=== PATIENT | female | born 1935 | race Caucasian/White ===

== ENCOUNTER → 2016-09-19 | Outpatient (CLI) | payer BC, OTHER ==
[2016-09-19 17:18] LABS: BASO % 0.4 %; BASO ABS # 0.04 K/uL (0-0.2); COMPLETE YES; EOS % 3.5 %; HEMATOCRIT 40.2 % (37-47); IG% 0.2 %; LYMPH % 16.5 %; LYMPH ABS # 1.59 K/uL (1.2-3.4); MEAN CELL VOLUME 81.2 fL (80-100); MEAN CORPUSCULAR HEMOGLOBIN 26.3 pg (25-34); MEAN CORPUSCULAR HGB CONC 32.3 g/dl (32-36); MEAN PLATELET VOLUME 9.5 fL (7.4-10.4); NEUT % 71.4 %; PLATELET COUNT 448 K/uL (130-400); RED BLOOD COUNT 4.95 M/uL (4.2-5.4); WHITE BLOOD COUNT 9.63 K/uL (4.8-10.8)
[2016-09-19 19:40] LABS: ALT/SGPT 13 U/L (12-78); BLOOD UREA NITROGEN 5 mg/dl (7-18); BUN/CREATININE RATIO 7.6 (10-20); CALCIUM 9.7 mg/dl (8.5-10.1); CARBON DIOXIDE 27 mmol/L (21-32); CHLORIDE 100 mmol/L (98-107); CREATININE 0.67 mg/dl (0.60-1.20); GLUCOSE 105 mg/dl (70-99); POTASSIUM 4.2 mmol/L (3.5-5.1); SODIUM 136 mmol/L (136-145)
[2016-09-19 19:49] LABS: ALB/GLOB RATIO 0.9 (0.9-2); ALKALINE PHOSPHATASE 111 U/L (45-117); AST/SGOT 16 U/L (15-37); PREALBUMIN 21.2 mg/dl (20-40); THYROID STIMULATING HORMONE 0.709 uIu/ml (0.300-4.500)
== END | disposition home or self-care (01) ==
LOC: C.LABPVFM 12:05
PROVIDERS: ATTEND Nurse Practitioner Family
DX: R63.4 Abnormal weight loss (principal); R82.90 Unspecified abnormal findings in urine

== ENCOUNTER 2019-03-18 10:30 | Inpatient (IN) ==
--- OUTSIDE RECORDS SUMMARY | 2019-03-18 10:33 | External Medical Summary | Continuity of Care Document ---
:1935 Author Name Candace Fields, Provider Address Unavailable Unavailable , Care Team Providers Name Role Phone Unavailable Unavailable Unavailable Paddy Delgadillo Unavailable [email or web address] PADDY SINGH Unavailable Unavailable Unavailable Unavailable Unavailable Problems Seasonal asthma (493.90) (J45.998) Failure to thrive Unintended weight loss (783.21) (R63.4) Hypertension (401.9) (I10) Abnormal EKG (794.31) (R94.31) Urinary symptom or sign (788.99) (R39.9) Tachycardia (785.0) (R00.0) Abnormal urinalysis (791.9) (R82.90) Hypercholesterolemia (272.0) (E78.00) Thrombocytosis (238.71) (D47.3) Heart murmur (785.2) (R01.1) Allergies and Adverse Reactions Shellfish (Allergy) Medications Nitrofurantoin Macrocrystal 100 MG Oral Capsule; TAKE 1 CAPSULE EVERY 12 HOURS DAILY. DAMEON Singh Start: 19-Sep-2016 Quantity: 14 Refills: 0 Ventolin HFA 108 (90 Base) MCG/ACT Inhal ation Aerosol Solution; INHALE 2 PUFFS EVERY 4 TO 6 HOURS NEEDED. DAMEON Singh Start: 26-Sep-2016 Quantity: 1 Refills: 0 Procedures History of Cath Placement Of Stent 2 Sta tus: Completed History of Total Abdominal Hysterectomy Status: Completed Immunizations Immunizations not documented Family History Mother Family history of cardiac disorder (V17.49) (Z82.49) Status: Active Family history of hypertension (V17.49) (Z82.49) Status: Act [place] Father Family history of malignant neoplasm of prostate (V16. 42) (Z80.42) Status: Active Brother Family history of malignant neoplasm of prostate (V16. 42) (Z80.42) Status: Active Social History - Smoking Status Never smoker Plan of Treatment Planned Observations Planned Goals not documented Results No Known Results Results not documented
[2019-03-18 11:17] LABS: Basophils # (auto) 0.02 K/uL (0-0.2); Basophils % (auto) 0.2 %; Eosinophils # (auto) 0.01 K/uL (0-0.5); Eosinophils % (auto) 0.1 %; Hematocrit (blood only) 36.5 % (37-47); Hemoglobin 11.9 g/dL (12.0-16.0); Immature Granulocytes # (auto) 0.03 K/uL (0.00-0.02); Immature Granulocytes % (auto) 0.3 %; Lymphocytes # (auto) 1.11 K/uL (1.2-3.4); Lymphocytes % (auto) 9.9 %; Mean Corpuscular Hgb Conc 32.6 g/dL (32-36); Mean Corpuscular Volume 76.8 fL (80-100); Mean Platelet Volume 9.5 fL (7.4-10.4); Monocytes # (auto) 0.57 K/uL (0.11-0.59); Monocytes % (auto) 5.1 %; Neutrophils # (auto) 9.46 K/uL (1.4-6.5); Neutrophils % (auto) 84.4 %; Platelet Count 441 K/uL (130-400); RDW Coefficient of Variation 14.4 % (11.5-14.5); RDW Standard Deviation 40.6 fL (36.4-46.3); Red Blood Count 4.75 M/uL (4.2-5.4)
--- NOTE | 2019-03-18 11:23 | XRay Report ---
XR chest 1V portable HISTORY: 83 years-old Female SOB acute shortness of breath COMPARISON: None available TECHNIQUE: Portable AP view of the chest FINDINGS: Cardiac silhouette is mildly enlarged. Calcification of the thoracic aorta. Mild interstitial coarsen ing. Suggestion of trace pleural effusions. No pneumothorax, overt pulmonary edema or lobar airspace consolidation. Degenerative changes of the shoulders and spine. IMPRESSION: 1. Cardiomegaly without overt pulmonary edema. 2. Mild nonspecific interstitial coarsening. 3. Trace pleural effusions. The above report was generated using voice recognition software. It may contain grammatical, syntax o r spelling errors. Electronically signed by: Alexandru Rudolph M.D. 03/18/2019 11:22 AM
[2019-03-18 11:33] LABS: Albumin Level 3.6 gm/dl (3.4-5.0); BUN Creatinine Ratio 14.8 (10-20); Calcium 9.4 mg/dl (8.5-10.1); Creatinine Clr Calc Pharmacy 24.5 ml/min; Est GFR (African American) 61.8; Est GFR (Non-African American) 53.3; Potassium 3.9 mmol/L (3.5-5.1)
[2019-03-18 11:35] LABS: INR 1.1 (0.9-1.1); Partial Thromboplastin Time 25.8 Seconds (21.0-31.0)
[2019-03-18 11:41] LABS: Albumin Globulin Ratio 0.8 (0.9-2); Bilirubin,Total 0.7 mg/dl (0.2-1); Globulin 4.5 gm/dl (2.5-4.0); Total Protein 8.1 gm/dl (6.4-8.2); Troponin I 3.46 ng/ml (0-0.045)
[2019-03-18] MEDS ORDERED: Heparin IV Low Dose *NO* Bolus IV ONE (11:45)
[2019-03-18] MEDS ORDERED: ASPIRIN CHEW 324 MG PO STA (11:45)
[2019-03-18] MEDS ORDERED: SODIUM CHLORIDE 0.9% 250 ML IV ONE (11:51)
[2019-03-18] MEDS ORDERED: DEXTROSE IV SCH (12:15)
[2019-03-18] MEDS ORDERED: HEPARIN IV SCH (12:15)
[2019-03-18] MEDS ORDERED: [UNRECOGNIZED DRUG - OTHER] IV SCH (12:15)
[2019-03-18 12:40] LABS: Magnesium 2.1 mg/dl (1.8-2.4); Phosphorus 3.4 mg/dl (2.5-4.9)
--- NOTE | 2019-03-18 15:50 | Emergency Department Note ---
Entered by Robina Herring acting as a scribe for History of Present Illness General Chief complaint: Shortness of Breath/Dyspnea Stated complaint: SOB Time Seen by Provider: 03/18/19 11:31 Source: patient and family Mode of arrival: ambulatory Limitations: no limitations History of Present Illness Onset (ago): day(s) 1 Location: chest Radiation: non-radiation Pain Consistency: + constant Relieved By: + none Exacerbated By: + movement Associated symptoms: + other (+dizziness); no chest pain Treatments prior to arrival: aspirin The patient is an 83 year old female who presents to the ED with complaints of shortness of breath. She is accompanied by her daughter. Yesterday around 1000, the patient went to walk up some steps when she began to feel very short of breath, dizzy and diaphoretic. She had to sit down to calm her breathing. Her daughter did give her 2 Aspirin yesterday. The patient has a history of a previous heart attack and has [address] Her daughter states she has decided to stop taking her medications and has not seen a PCP in over 20 years. Her previous physicians were at [facility]. The patient denies any chest pain. She does have a history of high cholesterol. She denies any recent history of GI bleeding. Home Medications Home Medications Medication Instructions Recorded Confirmed Type albuterol sulfate [Ventolin HFA] 1 puff INHALATION Q6H PRN 03/18/19 03/18/19 History aspirin [Aspirin Low Dose] 162 mg PO DAILY PRN 03/18/19 03/18/19 History fluticasone propion-salmeterol 1 inh INHALATION Q12H 03/18/19 03/18/19 History [Advair Diskus] Allergies Allergy/AdvReac Type Severity Reaction Status Date / Time shellfish derived AdvReac Intermediate Hives Unverified 03/18/19 11:50 Past Med/Surg History Medical History Seasonal asthma Heart attack Surgical History History of heart artery stent H/O hysterectomy for benign disease Hx of bilateral cataract extraction Social History Preferred Language: Chinese Communication Ability: Effective Hearing Ability: Normal 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 Beliefs That Will Affect Care: Evangelical Evangelical Beliefs: Religion WOULD LIKE TO SEE A SECOND [employer] marital status: / marital status details: at the age of 62 Current Living Situation: Family Current Living Situation Comment: lives with daughter and son-in-law current occupational status: retired Feels Safe at Home: Yes Safety Concerns: Feels Safe At This Time Smoking Status: Never smoker Hx Alcohol Use: Yes Alcohol type: hard liquor Hx Substance Use: No during the past year weight has: remained stable Review of Systems See HPI for pertinent positives & negatives. and A total of 10 systems reviewed and were otherwise negative Physical Exam Vital Signs Vital Signs - 24 hr 03/18/19 10:37 03/18/19 11:00 03/18/19 11:08 Temperature 36.6 C Temperature Source Oral Sepsis Recent Fever Within 48 Hours No Sepsis New/Unexplained Change in Mental Status No Sepsis Action Taken by Nursing No Action Required Pulse Rate 121 H 117 H Pulse Rate [Finger] 114 H Respiratory Rate 18 20 23 Blood Pressure 124/60 136/68 Blood Pressure [Right Arm] 136/68 Blood Pressure Mean 81 90 Blood Pressure Mean [Right Arm] 90 Pulse Oximetry 100 99 99 Oxygen Delivery Method Room Air Room Air Room Air 03/18/19 11:30 03/18/19 12:00 03/18/19 12:30 Temperature Temperature Source Sepsis Recent Fever Within 48 Hours Sepsis New/Unexplained Change in Mental Status Sepsis Action Taken by Nursing Pulse Rate 105 H 109 H 116 H Pulse Rate [Finger] Respiratory Rate 22 20 21 Blood Pressure 128/69 136/84 128/71 Blood Pressure [Right Arm] Blood Pressure Mean 88 101 90 Blood Pressure Mean [Right Arm] Pulse Oximetry 100 98 96 Oxygen Delivery Method Room Air Room Air Room Air 03/18/19 13:00 03/18/19 13:30 03/18/19 14:00 Temperature Temperature Source Sepsis Recent Fever Within 48 Hours Sepsis New/Unexplained Change in Mental Status Sepsis Action Taken by Nursing Pulse Rate 115 H 107 H 119 H Pulse Rate [Finger] Respiratory Rate 21 21 20 Blood Pressure 136/82 128/67 141/91 H Blood Pressure [Right Arm] Blood Pressure Mean 100 87 107 Blood Pressure Mean [Right Arm] Pulse Oximetry 94 98 99 Oxygen Delivery Method Room Air Room Air Room Air 03/18/19 14:30 03/18/19 15:00 Temperature Temperature Source Sepsis Recent Fever Within 48 Hours Sepsis New/Unexplained Change in Mental Status Sepsis Action Taken by Nursing Pulse Rate 124 H 113 H Pulse Rate [Finger] Respiratory Rate 23 23 Blood Pressure Blood Pressure [Right Arm] Blood Pressure Mean Blood Pressure Mean [Right Arm] Pulse Oximetry 96 97 Oxygen Delivery Method Room Air Room Air GENERAL: Awake, alert, well-appearing, in no distress HENT: Normocephalic, atraumatic. Oropharynx with dry mucous membranes and otherwise unremarkable. EYES: Normal conjunctiva. Sclera non-icteric. NECK: Supple. No nuchal rigidity. FROM. No JVD. RESPIRATORY: CTAB. CARDIAC: Regular rate, normal rhythm. Extremities warm and well perfused. Pulses equal. ABDOMEN: Soft, non-distended. No tenderness to palpation. No rebound or guarding. No masses. RECTAL: Deferred. MUSCULOSKELETAL: Chest examination reveals no tenderness. The back is symmetrical on inspection without obvious abnormality. There is no CVA tenderness to palpation. No joint edema. LOWER EXTREMITIES: Calves are equal size bilaterally and non-tender. No edema. No discoloration. NEURO: Normal sensorium. No sensory or motor deficits noted. SKIN: No rash or jaundice noted. Course 1144: The patient was evaluated in room C6 and a complete history and physical were performed. 1215: I discussed the patients case with Dr. Rosales, [facility] Cardiology. The patient will be further evaluated. 1304: I discussed the patients case with Sourav Lopez PA-C [facility] Hospitalist. The patient will be further evaluated. 1310: I reevaluated the patient. She is resting comfortably. I discussed her results and my recommendation she remain in the hospital for further evaluation and management and she verbalized complete understanding and agreement. Consultations Consultation #1: I discussed the patients case with Dr. Rosales [facility] Cardiology. The patient will be further evaluated. Time: 12:15 Consultation #2: I discussed the patients case with Sourav Lopez PA-C [facility] Hospitalist. The patient will be further evaluated. Time: 13:04 Administered Medications Atorvastatin Calcium (Lipitor) 40 mg PO HS DARIEN Stop: 04/17/19 20:59 Last Admin: 03/18/19 19:50 Dose: 40 mg Documented by: [id number] Heparin Sodium/Dextrose (Heparin Sodium/Dextrose) 25,000 units in 500 mls @ 16 mls/hr IV .Q24H DARIEN; Protocol Stop: 04/17/19 12:14 Last Titration: 03/18/19 19:31 Dose: 800 units/hr, 16 mls/hr Documented by: [id number] Cosigned by: [id number] Titration: 03/18/19 17:05 Dose: 650 units/hr, 13 mls/hr Documented by: [id number] Cosigned by: [id number] Admin: 03/18/19 12:06 Dose: 450 units/hr, 9 mls/hr Documented by: [id number] Cosigned by: [id number] Metoprolol Tartrate (Lopressor) 25 mg PO BID DARIEN Stop: 04/17/19 20:59 Last Admin: 03/18/19 19:50 Dose: 25 mg Documented by: [id number] Fluticasone/Salmeterol (Advair Diskus 250/50) 1 puffs INH Q12H DARIEN Stop: 04/17/19 16:25 Last Admin: 03/18/19 19:50 Dose: 1 puffs Documented by: [id number] Discontinued Medications Aspirin (Aspirin) 324 mg PO NOW STA Stop: 03/18/19 11:46 Last Admin: 03/18/19 12:05 Dose: 324 mg Documented by: [id number] Heparin Sodium/Dextrose () 1 ea IV ONE ONE; Protocol Stop: 03/18/19 11:46 Last Admin: 03/18/19 12:06 Dose: 1 ea Documented by: [id number] Sodium Chloride (Nss) 250 mls @ 999 mls/hr IV .Q16M ONE Stop: 03/18/19 12:06 Last Infusion: 03/18/19 12:25 Dose: 0 mls/hr Documented by: [id number] Admin: 03/18/19 12:06 Dose: 999 mls/hr Documented by: [id number] Furosemide 20 mg/ Syringe 2 mls @ 4 mls/min IV NOW ONE Stop: 03/18/19 18:46 Last Admin: 03/18/19 19:00 Dose: 4 mls/min Documented by: [id number] Heparin Sodium (Porcine) 3,000 (units/ Syringe) 3 mls @ 1 mls/min IV ONE ONE Stop: 03/18/19 19:47 Last Admin: 03/18/19 19:47 Dose: 1 mls/min Documented by: [id number] Cosigned by: [id number] Metoprolol Tartrate (Lopressor) 5 mg IV Q6 DARIEN Stop: 04/17/19 17:59 Last Admin: 03/18/19 18:26 Dose: 5 mg Documented by: [id number] Medical Decision Making Differential Diagnosis Differential diagnoses includes but is not limited to pneumonia, bronchitis, COPD/Asthma exacerbation, pneumothorax, pulmonary embolism, congestive heart failure, acute coronary syndrome. Medical Records Attestation: I reviewed the patient's medical records. Home Medications Current Medication List: was personally reviewed by me Laboratory Data Attestation: I reviewed the patient's lab results. Result diagrams: 03/19/19 00:17 03/18/19 11:00 Lab Results 03/18/19 03/18/19 03/18/19 Range/Units 11:00 11:00 11:00 WBC 11.20 H (4.8-10.8) K/uL RBC 4.75 (4.2-5.4) M/uL Hgb 11.9 L (12.0-16.0) g/dL Hct 36.5 L (37-47) % MCV 76.8 L (80-100) fL MCH 25.1 (25-34) pg MCHC 32.6 (32-36) g/dL RDW Std Deviation 40.6 (36.4-46.3) fL RDW Coeff of Ness 14.4 (11.5-14.5) % Plt Count 441 H (130-400) K/uL MPV 9.5 (7.4-10.4) fL Immature Gran % (Auto) 0.3 % Neut % (Auto) 84.4 % Lymph % (Auto) 9.9 % [place] % (Auto) 5.1 % Eos % (Auto) 0.1 % Baso % (Auto) 0.2 % Immature Gran # (Auto) 0.03 H (0.00-0.02) K/uL Neut # (Auto) 9.46 H (1.4-6.5) K/uL Lymph # (Auto) 1.11 L (1.2-3.4) K/uL Huntington # (Auto) 0.57 (0.11-0.59) K/uL Eos # (Auto) 0.01 (0-0.5) K/uL Baso # (Auto) 0.02 (0-0.2) K/uL PT 11.0 (9.0-12.0) Seconds INR 1.1 (0.9-1.1) APTT 25.8 (21.0-31.0) Seconds PTT Ratio 1.0 Sodium 131 L (136-145) mmol/L Potassium 3.9 (3.5-5.1) mmol/L Chloride 99 (98-107) mmol/L Carbon Dioxide 26 (21-32) mmol/L Anion Gap 6.0 (3-11) BUN 14 (7-18) mg/dl Creatinine 0.98 (0.6-1.2) mg/dl Est Cr Clr Drug Dosing 24.5 ml/min Est GFR ( Amer) 61.8 Est GFR (Non-Af Amer) 53.3 BUN/Creatinine Ratio 14.8 (10-20) Glucose 113 H (70-99) mg/dl Calcium 9.4 (8.5-10.1) mg/dl Phosphorus (2.5-4.9) mg/dl Magnesium (1.8-2.4) mg/dl Total Bilirubin 0.7 (0.2-1) mg/dl AST 19 (15-37) U/L ALT 17 (12-78) U/L Alkaline Phosphatase 91 (45-117) U/L Troponin I 3.460 H* (0-0.045) ng/ml NT-Pro-B Natriuret Pep (0-1800) pg/ml Total Protein 8.1 (6.4-8.2) gm/dl Albumin 3.6 (3.4-5.0) gm/dl Globulin 4.5 H (2.5-4.0) gm/dl Albumin/Globulin Ratio 0.8 L (0.9-2) 03/18/19 Range/Units 11:00 WBC (4.8-10.8) K/uL RBC (4.2-5.4) M/uL Hgb (12.0-16.0) g/dL Hct (37-47) % MCV (80-100) fL MCH (25-34) pg MCHC (32-36) g/dL RDW Std Deviation (36.4-46.3) fL RDW Coeff of Ness (11.5-14.5) % Plt Count (130-400) K/uL MPV (7.4-10.4) fL Immature Gran % (Auto) % Neut % (Auto) % Lymph % (Auto) % Huntington % (Auto) % Eos % (Auto) % Baso % (Auto) % Immature Gran # (Auto) (0.00-0.02) K/uL Neut # (Auto) (1.4-6.5) K/uL Lymph # (Auto) (1.2-3.4) K/uL Huntington # (Auto) (0.11-0.59) K/uL Eos # (Auto) (0-0.5) K/uL Baso # (Auto) (0-0.2) K/uL PT (9.0-12.0) Seconds INR (0.9-1.1) APTT (21.0-31.0) Seconds PTT Ratio Sodium (136-145) mmol/L Potassium (3.5-5.1) mmol/L Chloride (98-107) mmol/L Carbon Dioxide (21-32) mmol/L Anion Gap (3-11) BUN (7-18) mg/dl Creatinine (0.6-1.2) mg/dl Est Cr Clr Drug Dosing ml/min Est GFR ( Amer) Est GFR (Non-Af Amer) BUN/Creatinine Ratio (10-20) Glucose (70-99) mg/dl Calcium (8.5-10.1) mg/dl Phosphorus 3.4 (2.5-4.9) mg/dl Magnesium 2.1 (1.8-2.4) mg/dl Total Bilirubin (0.2-1) mg/dl AST (15-37) U/L ALT (12-78) U/L Alkaline Phosphatase (45-117) U/L Troponin I (0-0.045) ng/ml NT-Pro-B Natriuret Pep 50888 H (0-1800) pg/ml Total Protein (6.4-8.2) gm/dl Albumin (3.4-5.0) gm/dl Globulin (2.5-4.0) gm/dl Albumin/Globulin Ratio (0.9-2) Imaging Data Radiologist's Impression: Radiology results as stated below per my review and the radiologist's interpretation: XR chest 1V portable HISTORY: 83 years-old Female SOB acute shortness of breath COMPARISON: None available TECHNIQUE: Portable AP view of the chest FINDINGS: Cardiac silhouette is mildly enlarged. Calcification of the thoracic aorta. Mild interstitial coarsening. Suggestion of trace pleural effusions. No pneumothorax, overt pulmonary edema or lobar airspace consolidation. Degenerative changes of the shoulders and spine. IMPRESSION: 1. Cardiomegaly without overt pulmonary edema. 2. Mild nonspecific interstitial coarsening. 3. Trace pleural effusions. The above report was generated using voice recognition software. It may contain grammatical, syntax or spelling errors. Electronically signed by: Alexandru Rudolph M.D. 03/18/2019 11:22 AM ECG Data Attestation: I personally reviewed and interpreted this ECG as follows: Indication: SOB/dyspnea Rate (beats per minute): 111 Rhythm: sinus tachycardia Findings: + other (No Sgarbossa criteria) and + LBBB Blood Pressure Blood Pressure Findings: Normal blood pressure Blood Pressure Disposition: did not require urgent referral MDM Narrative The patient is a pleasant 83 y/o woman with a pmhx of CAD with remote NM s/p PCI who no longer follows regular for medical care and has not been taking any medications for years who presents to the emergency department with episode of CP, sob, nausea, and diaphoresis yesterday when exerting herself walking up [place] air[place], which eventually resolved over hours with rest per HPI. Episode began yesterday at 10am. She was given ASA by the pateint's daugher but the patient did not want to come to the hospital. Today she was agreeable to come to the ED. She denies any sx today. On arrival the patient is in NAD, AFVSS. EKG demonstrates LBBB without Sgarbossa criteria. No prior EKG available for comparison. CXR negative for acute process. WBC 11, nonspecific. H/H 11.9/36.5 without prior for comparison. Platelets 441. Chemistry without acidosis. Troponin 3.4 and BNP [id number] without prior for comparison. Given patient's description of sx yesterday and her troponin elevation today, sx concerning for having had cardiac event. Findings reviewed with the patient and her daughter. She continued to deny any symptoms and was well relatively well-appearing. She denies any history for GIB or recent bloody or black stools. They agree with plan for admission. Case was discussed with Dr. Rosales, [facility] cardiology, who agrees with ASA and heparin gtt and will evaluate the patient. Case additionally d/w Sourav Lopez, [facility] PAC, who will evaluate the patient for admission. Impression & Plan Non-ST elevation myocardial infarction (NSTEMI), Elevated brain natriuretic peptide (BNP) level Critical Care Time Critical Care Time: Yes Total Critical Care Time: 35 I have personally spent 35 minutes of critical care time in the direct management of this patient. This includes bedside care, interpretation of diagnostic studies, and testing, discussion with consultants, patient, and family members, and other required patient management activities. This 35 minutes is in excess of all separately billable procedures. Discharge Plan Visit Data *Final* Discharge Date/Time: 03/18/19 15:44 Chief Complaint: Shortness of Breath/Dyspnea Stated Complaint: SOB ED Provider: Shaun Marte Discharge Problem: Non-ST elevation myocardial infarction (NSTEMI), Elevated brain natriuretic peptide (BNP) level Patient Disposition: Admitted As Inpatient Discharge Instructions Interventions: ED Discharge Assessment Last Done: 03/18/19 15:44 The scribe's documentation has been prepared under my direction and personally reviewed by me in its entirety. I confirm that the note above accurately reflects all work, treatment, procedures, and medical decision making performed by me.
--- NOTE | 2019-03-18 15:50 | History & Physical Report ---
Date of Service March 18, 2019 Assessment & Plan (1) Non-ST elevation myocardial infarction (NSTEMI): Patient with elevated troponin Symptoms started greater than 24 hours ago Cardiology consult Will start aspirin daily Follow serial troponins/cardiac enzymes Echocardiogram Daily EKG Continue weight-based heparin drip Admit to telemetry unit (2) CAD (coronary artery disease): History of myocardial infarction 20 years ago. Placement of [address] [facility] No recent follow-up Moved to the area and wishes to establish with [facility] /DAMEON Mariano Currently not on YASEMIN inhibitor or beta-joão or antiplatelet agent at home We will start aspirin and follow advice from cardiology (3) Seasonal asthma: Hold albuterol inhaler Continue Advair Diskus Currently oxygenating well on room air with no evidence of adventitious breath sounds (4) DVT prophylaxis: Weight-based heparin drip Ambulate as tolerated Please refer to Dr. Brown's addendum for further recommendations. History of Present Illness Attending: Dr. Tung Brown Is an 83-year-old female who recently transplanted from the [facility] to live with her daughter in [facility]. She presents with chest tightness and generalized fatigue that started yesterday and continued throughout the day. This morning she had continued shortness of breath and presented to the emergency department for evaluation where she was found to have a left bundle branch block on EKG and elevated troponin. She had no crushing chest pain and no focal pain in the precordia or her back. She had no radiating pain to the neck or shoulder. She denies any nausea or vomiting. She has no awareness of any tachyarrhythmias or other ectopy. She had no diaphoresis and no fever. She has no trauma or other illness. The patient does have a past medical history which includes CAD with a history of stents 20 years ago in [place]. She has asthma which is seasonal in nature and no other significant past medical history. Surgical history includes hysterectomy and bilateral cataract replacement with lenses. She has no tobacco abuse history, ethanol abuse history, or other substance abuse history. She was at the age of 62. 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 Primary Care Provider: NO PCP Allergies Allergy/AdvReac Type Severity Reaction Status Date / Time shellfish derived AdvReac Intermediate Hives Unverified 03/18/19 11:50 Home Medications Home Medications Medication Instructions Recorded Confirmed Type albuterol sulfate [Ventolin HFA] 1 puff INHALATION Q6H PRN 03/18/19 03/18/19 History aspirin [Aspirin Low Dose] 162 mg PO DAILY PRN 03/18/19 03/18/19 History fluticasone propion-salmeterol 1 inh INHALATION Q12H 03/18/19 03/18/19 History [Advair Diskus] Past Med/Surg History Medical History Seasonal asthma Heart attack Surgical History History of heart artery stent H/O hysterectomy for benign disease Hx of bilateral cataract extraction Social History Preferred Language: Taiwanese Communication Ability: Effective Hearing Ability: Normal Director Style Required: No Beliefs That Will Affect Care: Congregational Congregational Beliefs: Restoration WOULD LIKE TO SEE A INFANTRY [employer] marital status: / marital status details: at the age of 62 Current Living Situation: Family Current Living Situation Comment: lives with daughter and son-in-law current occupational status: retired Feels Safe at Home: Yes Safety Concerns: Feels Safe At This Time Smoking Status: Never smoker Hx Alcohol Use: Yes Alcohol type: hard liquor Hx Substance Use: No during the past year weight has: remained stable Review of Systems Review of Systems: All systems reviewed & are unremarkable except as noted in HPI & below Physical Exam Physical Exam: GENERAL : No acute distress. Patient is thin. Patient is pleasant EYES: No icterus, gaze conjugate. Pupils equal round and reactive to light NOSE: No evidence of epistaxis MOUTH: No lesions or candidiasis. Oral mucosa is dry NECK: Supple. No carotid bruits appreciated LUNGS: CTA B/L, no wheezes, rales or rhonchi HEART: Regular, rate controlled. No appreciation of murmur ABDOMEN: Soft, NT, ND, BS Present EXTREMITIES: No LE edema, pedal pulses intact NEURO: A&OX3. No evidence of focal deficit Results & Data Vital Signs (Past 12 Hours) Vital Signs Temp Pulse Pulse Resp BP BP Pulse Ox 03/18/19 14:30 124 H 23 96 03/18/19 14:00 119 H 20 141/91 H 99 03/18/19 13:30 107 H 21 128/67 98 03/18/19 13:00 115 H 21 136/82 94 03/18/19 12:30 116 H 21 128/71 96 03/18/19 12:00 109 H 20 136/84 98 03/18/19 11:30 105 H 22 128/69 100 03/18/19 11:08 114 H 23 136/68 99 03/18/19 11:00 117 H 20 136/68 99 03/18/19 10:37 36.6 C 121 H 18 124/60 100 Laboratory Results 03/18/19 11:00 03/18/19 11:00 Abnormal Labs 03/18/19 03/18/19 03/18/19 11:00 11:00 11:00 WBC 11.20 H Hgb 11.9 L Hct 36.5 L MCV 76.8 L Plt Count 441 H Immature Gran # (Auto) 0.03 H Neut # (Auto) 9.46 H Lymph # (Auto) 1.11 L Sodium 131 L Glucose 113 H Troponin I 3.460 H* NT-Pro-B Natriuret Pep 29612 H Globulin 4.5 H Albumin/Globulin Ratio 0.8 L Diagnostic Findings XR chest 1V portable HISTORY: 83 years-old Female SOB acute shortness of breath COMPARISON: None available TECHNIQUE: Portable AP view of the chest FINDINGS: Cardiac silhouette is mildly enlarged. Calcification of the thoracic aorta. Mild interstitial coarsening. Suggestion of trace pleural effusions. No pneumothorax, overt pulmonary edema or lobar airspace consolidation. Degenerative changes of the shoulders and spine. IMPRESSION: 1. Cardiomegaly without overt pulmonary edema. 2. Mild nonspecific interstitial coarsening. 3. Trace pleural effusions. The above report was generated using voice recognition software. It may contain grammatical, syntax or spelling errors. Electronically signed by: Alexandru Rudolph M.D. 03/18/2019 11:22 AM Medications Administered Weight-based heparin drip initiated in the emergency department ECG Additional Comments: EKG 03/18/2019 11:08 AM Vent. rate 111 BPM KS interval 146 ms QRS duration 144 ms QT/QTc 382/519 ms P-R-T axes 79 -28 83 Sinus tachycardia Possible Left atrial enlargement Left bundle branch block Abnormal ECG No previous ECGs available Code Status & VTE Plan Code Status Level V DNR/DNI VTE Prophylaxis Plan VTE Prophylaxis will be ordered: Yes Reason for no VTE mechanical prophylaxis: Treatment not indicated Supervising Physician Co-Signing Physician Notes Patient seen and examined with Sourav BETANCUR. I agree with his HPI, history, ROS, physical exam and A/P. Case was discussed with her as well as the vasquez points in treatment. I personally reviewed the lab work and imaging and other diagnostic studies. Met with the patient and her daughter at the bedside at 1600. Patient had just arrived to the floor. She was a little winded from walking from the litter to the bed but otherwise was doing well. She denied any chest pain at that time. Discussed the diagnosis of NSTEMI, new LBBB. Asked patient and daughter if they would want heart catheterization and they said yes, if cardiology recommended. Discussed case with Dr. Rosales around 1900. He had reviewed her echo. Showed an EF of 25% and severe . Planned on starting beta joão and giving some Lasix. Planned for heart cath on 03/19/19. - NSTEMI: some chest pain 24 hours prior to arrival, troponin was 3 in the ED no ongoing chest pain treat with aspirin and heparin drip start on metoprolol as HR is in the 120's at rest plan for heart cath on 03/19 - Cardiomyopathy, systolic heart failure suspect it is due to ischemic disease, had a cath 20+ years ago with two stents will give Lasix, metoprolol plan for cath tomorrow - Severe poor prognosis unless she would get intervention Dr. Rosales discussed with patient and daughter will see what cath shows on 03/19 PG Care Time/CCT Total # of Minutes Spent Total Time Spent with Patient: Total time spent is greater than 50% in coordination of care (as documented) at patient's floor/unit and/or counseling patient:
[2019-03-18] MEDS ORDERED: NITROGLYCERIN SL 0.4 MG/TAB TAB SL PRN (16:26)
[2019-03-18] MEDS ORDERED: ALUMINUM/MAGNESIUM SUSP 30 ML UDC PO PRN (16:26)
[2019-03-18] MEDS ORDERED: POLYETHYLENE (MIRALAX) 17 GM PACK PO PRN (16:26)
[2019-03-18] MEDS ORDERED: ACETAMINOPHEN 325 MG TAB PO PRN (16:26)
[2019-03-18] MEDS ORDERED: ONDANSETRON INJ 2 MG/ML 2 ML VIAL IV PRN (16:26)
[2019-03-18] MEDS ORDERED: MAGNESIUM HYDROXIDE SUSP 30 ML UDC PO PRN (16:26)
[2019-03-18] MEDS ORDERED: Heparin IV Standard *NO* Bolus IV ONE (16:26)
[2019-03-18] MEDS ORDERED: METOPROLOL TARTRATE 1 MG/ML VIAL IV SCH (18:00)
--- NOTE | 2019-03-18 18:29 | Cardiology Consultation ---
Date of Consultation March 18, 2019 Assessment & Plan (1) Non-ST elevation myocardial infarction (NSTEMI): History of stents in approximately 1998. She had angina yesterday and according to her daughter (just spoke with her on the phone), she had chest discomfort even while here at the hospital today. The patient herself has downplays this to me. It is not clear if this is secondary to aortic stenosis or her history of CAD. Agree with heparin drip. Aspirin 81 mg daily. Will start low-dose beta-joão (carries a history of seasonal asthma but not currently wheezing and benefit of beta-joão at this point may outweigh the risk of her reactive airway disease). Will start high-intensity statin therapy. Both she and her daughter are interested in cardiac catheterization. Cardiac catheterization risks and benefits were discussed with them. They are both were made aware that CT surgery is not available to surgery. She would first like to speak with her daughter tomorrow, but her daughter is in agreement to pursue cardiac catheterization. (2) Aortic stenosis: She appears to have significant aortic stenosis however her transvalvular gradient/velocity does not support this, likely underestimated due to severely reduced LV systolic function. Aortic stenosis was reported as severe in 2017 in outpatient echo as well. This was discussed with her and her daughter. Her daughter is interested in pursuing opinions at least in regards to her aortic stenosis and mitral regurgitation and would prefer to have this done in the [place] area as her daughter lives there and it would be much easier for patient and family. (3) Mitral regurgitation: Significant mitral regurgitation based on echo findings. This was discussed with patient and family. Transesophageal ECHO may be helpful at some point. Cardiac catheterization tentatively scheduled for tomorrow. (4) CAD (coronary artery disease): Prior PCI x3 in 1998 (approximately). Reported angina yesterday and has elevated troponins. It is not clear if CAD as the cause of this verses severe aortic stenosis. High-intensity statin therapy. Aspirin and low-dose beta- joão. Cardiac catheterization tomorrow if all in agreement. (5) Acute systolic CHF (congestive heart failure): She is likely mildly hypervolemic or at least has probable elevated left filling pressures given her valvular heart disease and severely reduced LV systolic function with ischemic heart disease. Will give Lasix 20 mg IV x1. Strict I&Os, daily weights, and low-sodium diet. Consider right heart catheterization as well. (6) Tachycardia: Likely due to reduced stroke volume. With her significant aortic stenosis and ischemic heart disease, would like to try to gently slow her heart rate if tolerated. Metoprolol tartrate 25 mg twice daily will be initiated. Monitor closely for reactive airway disease exacerbation. Disposition: Highly complex medical issues. Cardiology will continue to follow. Patient's daughter was contacted via telephone as per patient request. NPO after midnight. Thank you for allowing me to participate in the care of your patient. Please call for any other questions or concerns. Sincerely, Miguel Rosales M.D. History of Present Illness Reason for Consultation: NSTEMI Requesting Physician: Dr. Brown Attending Physician: Tung Brown, DO History of Present Illness Mrs. Turner is a very pleasant 83-year-old female with a history significant for aortic stenosis, CAD status post PCI x3 approximately 1998 in [place], dyslipidemia, and seasonal asthma. She was unaccompanied at the time of our visit and her history was a bit inconsistent. She stated that she wished her daughter was here. Attempts were made to call her daughter but there was no answer on her cell or home phone. She states that she moved here approximately 1 year ago to live with her daughter. For the past 2 weeks she has had increased dyspnea with exertion and sometimes shortness of breath at rest. She noticed especially that walking up stairs would cause dyspnea. She chronically sleeps with 2 pillows and denies orthopnea. She denies PND. She acknowledges that she used to use supplemental oxygen at home but she has not required it recently. She initially denied any type of chest discomfort or pain but according to the H and P she developed substernal chest tightness yesterday. When this was mention to her, she agreed that she did have chest tightness yesterday morning as well as shortness of breath and a dizziness. It apparently persisted for few hours or throughout the day. She denies any further chest discomfort today. She came to the emergency department was found to have left bundle-branch block but with no prior ECG to compare in the hospital system. Her initial troponin was 3.46 [place] [id number]. She was admitted with non ST elevation myocardial infarction and placed on heparin drip. She received aspirin. She denies syncope, edema, melena, hematochezia, hematuria. She acknowledges that sometimes she has palpitations. She recalls having a cardiac catheterization approximately 20 years ago. She had at echo done in the outpatient setting in 2017 which reported severe aortic stenosis at that time with normal left ventricular systolic function. An ECG in the office was found on 09/19/2016 which demonstrated sinus tachycardia at 103 bpm. Inferior infarct was present, but no left bundle branch block. Review of systems: As above. Review of systems otherwise negative/unremarkable. Family history: Positive for CAD. Social history: She quit smoking approximately 30 years ago. Occasional alcohol; she enjoys a [employer] on the weekends. She lives with her daughter. She has 1 child. She is a . She was unaccompanied in her hospital room. Allergies Allergy/AdvReac Type Severity Reaction Status Date / Time shellfish derived AdvReac Intermediate Hives Unverified 03/18/19 11:50 Home Medications Home Medications Medication Instructions Recorded Confirmed Type albuterol sulfate [Ventolin HFA] 1 puff INHALATION Q6H PRN 03/18/19 03/18/19 History aspirin [Aspirin Low Dose] 162 mg PO DAILY PRN 03/18/19 03/18/19 History fluticasone propion-salmeterol 1 inh INHALATION Q12H 03/18/19 03/18/19 History [Advair Diskus] Patient History Medical History Seasonal asthma Heart attack Surgical History History of heart artery stent H/O hysterectomy for benign disease Hx of bilateral cataract extraction Social History Preferred Language: Irish Communication Ability: Effective Hearing Ability: Normal Continuous Improvement Director Required: No Beliefs That Will Affect Care: Latter Day Latter Day Beliefs: Mormonism WO JADED LIKE TO 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 Alert. HEENT: Anicteric sclera. Neck: No JVD. Bilateral bruits vs radiation of cardiac murmur. Normal carotid upstrokes bilaterally. Cardiac: PMI was nondisplaced and prominent. No ventricular heave. Tachycardic but regular. Normal S1. Very soft S2. 2/6 late peaking systolic ejection murmur heard best at right upper sternal border. No rubs or gallops. Pulmonary: Crackles noted bilateral bases. Abdomen: Soft, nontender, nondistended, with normoactive bowel sounds. No bruits noted. Extremities: 2+ radial pulses bilaterally. 2+ posterior tibialis pulses bilaterally. No edema or cyanosis. No palpable cords. Psychiatric: Affect appears appropriate. Results & Data Vital Signs (Past 12 Hours) Vital Signs Temp Pulse Pulse Resp BP BP Pulse Ox 03/18/19 16:30 36.4 C L 130 H 21 147/85 H 99 03/18/19 16:06 129 H 03/18/19 15:30 129 H 24 98 03/18/19 15:00 113 H 23 97 03/18/19 14:30 124 H 23 96 03/18/19 14:00 119 H 20 141/91 H 99 03/18/19 13:30 107 H 21 128/67 98 03/18/19 13:00 115 H 21 136/82 94 03/18/19 12:30 116 H 21 128/71 96 03/18/19 12:00 109 H 20 136/84 98 03/18/19 11:30 105 H 22 128/69 100 03/18/19 11:08 114 H 23 136/68 99 03/18/19 11:00 117 H 20 136/68 99 03/18/19 10:37 36.6 C 121 H 18 124/60 100 Laboratory Results Laboratory Results - last 24 hr 03/18/19 03/18/19 03/18/19 11:00 11:00 11:00 WBC 11.20 H RBC 4.75 Hgb 11.9 L Hct 36.5 L MCV 76.8 L MCH 25.1 MCHC 32.6 RDW Std Deviation 40.6 RDW Coeff of Ness 14.4 Plt Count 441 H MPV 9.5 Immature Gran % (Auto) 0.3 Neut % (Auto) 84.4 Lymph % (Auto) 9.9 Loving % (Auto) 5.1 Eos % (Auto) 0.1 Baso % (Auto) 0.2 Immature Gran # (Auto) 0.03 H Neut # (Auto) 9.46 H Lymph # (Auto) 1.11 L Loving # (Auto) 0.57 Eos # (Auto) 0.01 Baso # (Auto) 0.02 PT 11.0 INR 1.1 APTT 25.8 PTT Ratio 1.0 Sodium 131 L Potassium 3.9 Chloride 99 Carbon Dioxide 26 Anion Gap 6.0 BUN 14 Creatinine 0.98 Est Cr Clr Drug Dosing 24.5 Est GFR ( Amer) 61.8 Est GFR (Non-Af Amer) 53.3 BUN/Creatinine Ratio 14.8 Glucose 113 H Calcium 9.4 Phosphorus Magnesium Total Bilirubin 0.7 AST 19 ALT 17 Alkaline Phosphatase 91 Troponin I 3.460 H* NT-Pro-B Natriuret Pep Total Protein 8.1 Albumin 3.6 Globulin 4.5 H Albumin/Globulin Ratio 0.8 L 03/18/19 11:00 WBC RBC Hgb Hct MCV MCH MCHC RDW Std Deviation RDW Coeff of Ness Plt Count MPV Immature Gran % (Auto) Neut % (Auto) Lymph % (Auto) Loving % (Auto) Eos % (Auto) Baso % (Auto) Immature Gran # (Auto) Neut # (Auto) Lymph # (Auto) Loving # (Auto) Eos # (Auto) Baso # (Auto) PT INR APTT PTT Ratio Sodium Potassium Chloride Carbon Dioxide Anion Gap BUN Creatinine Est Cr Clr Drug Dosing Est GFR ( Amer) Est GFR (Non-Af Amer) BUN/Creatinine Ratio Glucose Calcium Phosphorus 3.4 Magnesium 2.1 Total Bilirubin AST ALT Alkaline Phosphatase Troponin I NT-Pro-B Natriuret Pep 68539 H Total Protein Albumin Globulin Albumin/Globulin Ratio Diagnostic Findings ECGs personally reviewed. ECG 03/18/2019: Sinus tachycardia with left bundle branch block. Left bundle- branch block is new compared to 09/19/2016 ECG done in the outpatient setting. Echo 10/21/2016: Outpatient echo reported normal wall motion and LV systolic function. EF 50-55%. Moderate LVH. Severe . Mild AI. Mild MR. Echo 03/18/2019: Normal LV size with severely reduced systolic function. EF 25-30%. Global hypokinesis. Moderate LVH. Severe left atrial dilation. Significant aortic stenosis with less severe transvalvular gradient/velocity, wh ich may be due to low cardiac output. Mild AI. Moderate to severe MR. RVSP 33. Chest x-ray 03/18/2019: Personally reviewed. No obvious infiltrate.
[2019-03-18] MEDS ORDERED: FUROSEMIDE 20 MG in SYRINGE 0 ML IV ONE (18:45)
[2019-03-18] MEDS ORDERED: PNEUMOCOCCAL ADMINISTRATION CHARGE ONE (19:15)
[2019-03-18] MEDS ORDERED: PNEUMOCOCCAL POLYSACCHARIDES 25 MCG/0.5 ML VIAL/SYR IM ONE (19:15)
[2019-03-18 19:29] LABS: Partial Thromboplastin Ratio 1.2; Partial Thromboplastin Time 32.5 Seconds (21.0-31.0)
[2019-03-18] MEDS ORDERED: HEPARIN IV BOLUS 3,000 UNITS in SYRINGE 0 ML IV ONE (19:45)
[2019-03-18] MEDS ORDERED: ATORVASTATIN 40 MG TAB PO SCH (21:00)
[2019-03-18] MEDS ORDERED: FLUTICASONE/SALMETEROL 250/50 (ADVAIR) 14 PUFF/1 INHALER INH SCH (21:00)
[2019-03-18] MEDS ORDERED: METOPROLOL TARTRATE 25 MG TAB PO SCH (21:00)
[2019-03-18 21:30] LABS: Creatine Kinase MB 5.7 ng/ml (0.5-3.6); Troponin I 3.33 ng/ml (0-0.045)
[2019-03-19] MEDS ORDERED: ATROPINE SULFATE 0.1 MG/ML 10ML SYR IV ONE (00:07)
[2019-03-19 00:18] LABS: Appearance Urine Clear (Clear); Bacteria Urine Automated Negative (Negative); Bilirubin Urine Negative (Negative); Blood Urine Negative (Negative); Color Urine Yellow; Epithelial Cell Urine Auto >30 /lpf (0-5); Glucose Urine UA Negative (Negative); Ketones Urine Trace (Negative); Leukocyte Esterase Urine Negative (Negative); Nitrite Urine Negative (Negative); Protein Urine Trace (Negative); RBC Urine Automated 0-4 /hpf (0-4); Specific Gravity Urine 1.022 (1.000-1.030); Urobilinogen Urine Negative (Negative)
[2019-03-19] MEDS ORDERED: FUROSEMIDE 40 MG/4 ML VIAL IV ONE (00:26)
[2019-03-19 00:27] LABS: Basophils # (auto) 0.02 K/uL (0-0.2); Basophils % (auto) 0.1 %; Eosinophils # (auto) 0.02 K/uL (0-0.5); Eosinophils % (auto) 0.1 %; Hematocrit (blood only) 34.8 % (37-47); Hemoglobin 11.1 g/dL (12.0-16.0); Immature Granulocytes # (auto) 0.05 K/uL (0.00-0.02); Immature Granulocytes % (auto) 0.4 %; Lymphocytes # (auto) 3.24 K/uL (1.2-3.4); Lymphocytes % (auto) 22.7 %; Mean Corpuscular Volume 78.7 fL (80-100); Monocytes # (auto) 0.85 K/uL (0.11-0.59); Neutrophils # (auto) 10.07 K/uL (1.4-6.5); Neutrophils % (auto) 70.7 %; Platelet Count 381 K/uL (130-400); RDW Coefficient of Variation 14.6 % (11.5-14.5); RDW Standard Deviation 41.8 fL (36.4-46.3); Red Blood Count 4.42 M/uL (4.2-5.4); White Blood Count 14.25 K/uL (4.8-10.8)
[2019-03-19] MEDS ORDERED: FUROSEMIDE 20 MG in SYRINGE 0 ML IV ONE (00:27)
[2019-03-19 00:33] LABS: Mean Corpuscular Hgb Conc 31.9 g/dL (32-36)
[2019-03-19 00:38] LABS: iSTAT Arterial Blood Gas HCO3 9 meg/L (19-24); iSTAT Arterial Blood Gas pCO2 20 mmHg (35-46); iSTAT Arterial Blood Gas pH 7.28 (7.35-7.45); iSTAT Carbon Dioxide 10 mEq/l (24-31); iSTAT Site R Brachial
[2019-03-19] MEDS ORDERED: fentaNYL citrate 100 MCG/2 ML VIAL ONE (00:40)
[2019-03-19] MEDS ORDERED: MIDAZOLAM HCL 1 MG/ML 2ML VIAL ONE (00:40)
[2019-03-19] MEDS ORDERED: HEPARIN (PORCINE) 1000 UNIT/ML 10 ML (CATH LAB USE ONLY) ONE (00:41)
[2019-03-19] MEDS ORDERED: NiCARDipine HCL INJ 2.5 MG/ML 10 ML AMP ONE (00:41)
[2019-03-19] MEDS ORDERED: NITROGLYCERIN/D5W 100MCG/ML 20ML SYR ONE (00:41)
[2019-03-19 00:49] LABS: Albumin Level 3.1 gm/dl (3.4-5.0); BUN Creatinine Ratio 14.9 (10-20); Calcium 8.9 mg/dl (8.5-10.1); Creatinine Clr Calc Pharmacy 20.2 ml/min; Est GFR (African American) 48.9; Est GFR (Non-African American) 42.2; Magnesium 2.3 mg/dl (1.8-2.4); Potassium 3.8 mmol/L (3.5-5.1)
[2019-03-19 00:55] LABS: Albumin Globulin Ratio 0.8 (0.9-2); Bilirubin,Total 0.4 mg/dl (0.2-1); Globulin 3.9 gm/dl (2.5-4.0); Partial Thromboplastin Ratio 2.9; Troponin I 3.86 ng/ml (0-0.045)
--- NOTE | 2019-03-19 01:00 | Progress Note ---
Date of Service March 19, 2019 Responded to an overhead code purple (called at [id number]). Per staff at bedside, patient had just returned from the bathroom when she was noted to have decrease in her heart rate from the low 100s to the 50s. Difficult to attach an SpO2 monitor due to diaphoresis and cold fingers. BP 52/27. Found patient awake, alert, knew her name, but not very conversational. She denied any pain but was in obvious moderate respiratory distress. Her heart was regular and her lungs sounded clear. EKG was in progress at the time of arrival at this noted a sinus rhythm, rate 56, with evidence of ST depressions and II + III + aVF as well as reciprocal ST depressions in lateral leads. Immediate follow up BP 99/48 then later 125/75. Patient was noted to be a DNR/DNI by bedside staff, so her chart was checked for further information. Per cardiology note yesterday, patient was admitted for an NSTEMI and was on track to get a cardiac catheterization later today. At this point a heart alert was called at 0013. Patient was then treated acutely with switch to oximask oxygen as well as sodium bicarb after noting her ABG to be metabolic acidosis. Portable chest x-ray was concerning for some volume overload, so the patient was given Lasix 20 mg IV x1. Shortly after this the patient was noted to be far more alert, quite chatty in fact, and continued to deny any chest pain but said that her breathing had improved. Dr. Stein (interventional cardiology) was then at bedside. The patient's acute story, brief medical history, and above EKG were reviewed. Patient will now be taken to the [facility] for further evaluation. Dr. Rose (hospitalist) and Blake XIAO (ICU) were present from the time of obtaining the EKG onwards until Dr. Stein's arrival. Ronan Cadena, PGY3 Overnight call Supervising Physician Co-Signing Physician Notes Attending addendum: I have physically seen this patient, have supervised the medical residents activities, and agree with the H&P unless as otherwise noted. Assessment and Plan: Discharge note: This note will serve as the discharge summary as well. I agree with the summary of Dr. Cadena. The patient was provided level care to the point that she would have needed to be intubated and/or have chest compressions to have any further chance of recovery, and this was not performed, due to her expressed wishes to be DNR. Results & Data Vital Signs (Past 12 Hours) Vital Signs Temp Pulse Pulse Pulse Resp BP BP 03/18/19 23:22 36.8 C 96 H 16 116/68 03/18/19 19:41 36.6 C 106 H 18 114/70 03/18/19 19:10 36.5 C 97 H 18 110/70 03/18/19 18:26 138 H 136/68 03/18/19 16:30 36.4 C L 130 H 21 03/18/19 16:06 129 H 03/18/19 15:30 129 H 24 03/18/19 15:00 113 H 23 03/18/19 14:30 124 H 23 03/18/19 14:00 119 H 20 141/91 H 03/18/19 13:30 107 H 21 128/67 03/18/19 13:00 115 H 21 136/82 BP Pulse Ox Pulse Ox 03/18/19 23:22 99 03/18/19 19:41 99 03/18/19 19:10 98 03/18/19 18:26 97 03/18/19 16:30 147/85 H 99 03/18/19 16:06 03/18/19 15:30 98 03/18/19 15:00 97 03/18/19 14:30 96 03/18/19 14:00 99 03/18/19 13:30 98 03/18/19 13:00 94
[2019-03-19 01:02] LABS: Partial Thromboplastin Time 79.6 Seconds (21.0-31.0)
[2019-03-19] MEDS ORDERED: CLOPIDOGREL BISULFATE 300 MG TAB ONE (01:53)
--- NOTE | 2019-03-19 01:58 | Pre Anesthesia Assessment ---
Date of Service March 19, 2019 Pre Sedation Assessment Vital Signs Temp Pulse Pulse Pulse Resp BP BP 03/18/19 23:22 36.8 C 96 H 16 116/68 03/18/19 19:41 36.6 C 106 H 18 114/70 03/18/19 19:10 36.5 C 97 H 18 110/70 03/18/19 18:26 138 H 136/68 03/18/19 16:30 36.4 C L 130 H 21 03/18/19 16:06 129 H 03/18/19 15:30 129 H 24 03/18/19 15:00 113 H 23 03/18/19 14:30 124 H 23 03/18/19 14:00 119 H 20 141/91 H 03/18/19 13:30 107 H 21 128/67 03/18/19 13:00 115 H 21 136/82 03/18/19 12:30 116 H 21 128/71 03/18/19 12:00 109 H 20 136/84 03/18/19 11:30 105 H 22 128/69 03/18/19 11:08 114 H 23 03/18/19 11:00 117 H 20 136/68 03/18/19 10:37 36.6 C 121 H 18 124/60 BP Pulse Ox Pulse Ox 03/18/19 23:22 99 03/18/19 19:41 99 03/18/19 19:10 98 03/18/19 18:26 97 03/18/19 16:30 147/85 H 99 03/18/19 16:06 03/18/19 15:30 98 03/18/19 15:00 97 03/18/19 14:30 96 03/18/19 14:00 99 03/18/19 13:30 98 03/18/19 13:00 94 03/18/19 12:30 96 03/18/19 12:00 98 03/18/19 11:30 100 03/18/19 11:08 136/68 99 03/18/19 11:00 99 03/18/19 10:37 100 Cardiovascular RRR, no murmur, no edema Respiratory normal respiratory effort, lungs clear to auscultation Pre-Sedation Airway Assessment Smoking Status: Never smoker Hx Sleep Apnea: No Hx Difficult Intubation: No Short, Thick Neck: No Thyromental Distance: > or= 3.5 Finger Breadths Oral Cavity: + WNL Mallampati Class: III Procedure Planning Contraindications for Sedation: none Current Medications Reviewed: Yes Notes The planned sedation has been discussed with the patient. Informed Consent was obtained. I have identified the patient, determined the appropriateness of sedation and have assessed the patient immediately prior to the procedure. All medicine(s) and interventions are by my order.
--- NOTE | 2019-03-19 01:59 | Post Anesthesia Assessment ---
Date of Service March 19, 2019 Post Sedation Assessment Vital Signs Temp Pulse Pulse Pulse Resp BP BP 03/18/19 23:22 36.8 C 96 H 16 116/68 03/18/19 19:41 36.6 C 106 H 18 114/70 03/18/19 19:10 36.5 C 97 H 18 110/70 03/18/19 18:26 138 H 136/68 03/18/19 16:30 36.4 C L 130 H 21 03/18/19 16:06 129 H 03/18/19 15:30 129 H 24 03/18/19 15:00 113 H 23 03/18/19 14:30 124 H 23 03/18/19 14:00 119 H 20 141/91 H 03/18/19 13:30 107 H 21 128/67 03/18/19 13:00 115 H 21 136/82 03/18/19 12:30 116 H 21 128/71 03/18/19 12:00 109 H 20 136/84 03/18/19 11:30 105 H 22 128/69 03/18/19 11:08 114 H 23 03/18/19 11:00 117 H 20 136/68 03/18/19 10:37 36.6 C 121 H 18 124/60 BP Pulse Ox Pulse Ox 03/18/19 23:22 99 03/18/19 19:41 99 03/18/19 19:10 98 03/18/19 18:26 97 03/18/19 16:30 147/85 H 99 03/18/19 16:06 03/18/19 15:30 98 03/18/19 15:00 97 03/18/19 14:30 96 03/18/19 14:00 99 03/18/19 13:30 98 03/18/19 13:00 94 03/18/19 12:30 96 03/18/19 12:00 98 03/18/19 11:30 100 03/18/19 11:08 136/68 99 03/18/19 11:00 99 03/18/19 10:37 100 Recovery Score Activity: Moves 4 extremities Respiration: Deep Breath/Cough Circulation: +/-20% PreAnes Value Consciousness: Fully Awake Oxygen Saturation: O2 needed for >90% Discharge Sedation Level of Care: Fast Track Phase II Post Sedation Plan On clinical assessment, the patient appears to have tolerated the sedation without complications. Patient is recovering as anticipated. Patient will continue to be monitored by nursing and may be discharged when sedation discharge criteria are met per below protocol. Upon Completions of procedure and additional 15 minutes continue every 5 minute vital signs and the P.A.R. score; then discharge to a Phase I or Fast Track to Phase II per the following guidelines: * Discharge Patient to appropriate Phase II area if PAR is 8 or greater or return to pre- procedure baseline. The post - procedure orders will be as directed. * If PAR score is less than 8 or not return to pre-procedure baseline then patient will follow Phase I monitoring till PAR is reached for Phase II. The Phase I may be done in procedure room or may call to secure a Phase I area. * If naloxone or flumazenil are used for reversal, hold in Phase I for continued monitoring from when last reversal dose was given for a minimum of 60 minutes or longer pending the nurse and/or physician discretion of patient condition before discharge to Phase II. Please call the Sedation Physician to re-evaluate and complete post-note for discharge to Phase II area. Do NOT discharge from procedure sedation or Phase 1 until post- sedation evaluation note is complete by procedure /sedation MD Sedation Discharge Instructions to be given to the patient at discharge to home.
--- NOTE | 2019-03-19 02:15 | Cardiac Catheterization ---
Cardiac Cath Procedure Full Procedure Date March 19, 2019 Pre-Procedure Diagnosis Pre-Procedure Diagnosis: Non STEMI AUC Score AUC Score: 8 Post-Procedure Diagnosis Post-Procedure Diagnosis: Severe CAD, Successful PCI and Normal Intracardiac Pressures Procedure(s) Performed Procedure(s) Performed: Coronary Angiography, Left Heart Cath, Drug Eluting Stent, Ultrasound Guided Vascular Access and Femoral Artery Angiography Catastrophe Claims Supervisor Ananth Stein MD Rn Stars(s) Beatriz Estimated Blood Loss Estimated Blood Loss: 15 Medication(s) Medication(s): Clopidogrel, Fentanyl, Heparin, Lidocaine 1% and Versed Summary of Findings Indication: High risk NSTEMI Access: 6 Fr right common femoral artery under ultrasound guidance Catheters: JL4, JR4, JR4 guide Findings: LM -moderate caliber, luminal irregularities LAD -calcified, moderate caliber, luminal irregularities, wraps around apex, small second diagonal with 40 to 50% ostial stenosis Circumflex -small caliber, mildly calcified, 20 to 30% ostial, mid to distal luminal irregularities. Long, small first OM with 60 to 70% mid segment st enosis RCA -dominant, earlymid stent widely patent, after stent 70 to 80% stenosis in mid segment, 50% mid/distal stenosis, luminal irregularities in right PDA LVEDP -16 Aortic valve pullback gradient - 10mmHg -- PCI -- Antithrombotic therapy: Heparin, clopidogrel Procedure: RCA cannulated with JR4 guide BMW wire passed across lesion into distal vessel Mid RCA lesion predilated with 2.5 compliant balloon Dilated lesion stented with 3.0 x 22 mm [place] overlapping with distal aspect of prior stent Stent post-dilated with 3.0 noncompliant balloon IC vasodilators administered for spasm Post procedure WIN 3 flow, stent well expanded with minimal residual stenosis and no apparent cardiac complications. Received 0.5 mg atropine x1 for bradycardia, junctional rhythm Arterial Closure: Angio-Seal Summary: 1. Severe single vessel coronary artery disease -70 to 80% mid RCA stenosis 60-70% proximal stenosis and small OM1 2. Normal intracardiac filling pressure 3. Aortic valve pullback gradient of 10 mmHg 4. Successful PCI of mid RCA with single drug-eluting stent (3.0 x 22 mm [place]) overlapping with distal aspect of prior stent. Recommendations: To PCU for continued monitoring Loaded with clopidogrel 600 mg Continue dual-antiplatelet therapy for at least one year Continue statin, and ASCVD risk factor modification Consult cardiac Rehab Hemodynamics Rest Ao:: 97/58 Final Ao: 129/76 LV: 101/16 Recommendations Recommendations: PCI without planned CABG Specimens Specimens: None Radiation Exposure (mGy) 984 Contrast (mls) 120 Fluids (cc crystalloids) Fluids (cc crystalloids): 100 Drains Drains: none Anesthesia moderate Procedural Complication(s) None Disposition PCU ACC Data: Patient Financial Services Coordinator Cardiac Status Clinical evaluation leading to the procedure CAD Presenation: Non STEMI Anginal Classification: CCS IV Heart Failure: No Cardiogenic Shock within 24 Hours: No Cardiac Arrest within 24 Hours: No Imaging Studies Past 6 Months: Yes Stress Studies Past 6 Months: No Diagnostic Physicians Name: Ananth Stein MD Status: Urgent Closure Device Percutaneous Entry Location: Femoral Closure Device: Angio-Seal Recommendations: PCI without planned CABG PCI Indication: PCI for high risk Non-EVIE Lesion Segment Name: mid RCA Culprit Artery: Yes Stenosis Prior to Rx (%): 70-80 Chronic Total Occlusion: No IVUS: No FFR: No Pre-Procedure WIN Flow: 3 Previously Treated Lesion: No Lesion Complexity: Non-High/Non-C Lesion Length (mm): 15 Thrombus Present: No Bifurcation Lesion: No Guidewire Across Lesion: Stenosis Post-Procedure (%): 0 Post-Procedure WIN Flow: 3 Devices(s) Deployed: Yes Yes Intraprocedure Events Significant Disection: No Perforation: No
[2019-03-19] MEDS ORDERED: METOPROLOL TARTRATE 1 MG/ML VIAL IV ONE (02:54)
[2019-03-19] MEDS ORDERED: SODIUM BICARB 8.4% INJ 50 MEQ/50 ML SYR ONE (02:55)
[2019-03-19] MEDS ORDERED: LORazepam 2 MG/4 ML VIAL ONE (03:00)
[2019-03-19] MEDS ORDERED: AMIODARONE 360MG / 200ML D5W IV ONE (03:07)
[2019-03-19] MEDS ORDERED: ALBUMIN 25% 100 ML IV ONE (03:15)
[2019-03-19] MEDS ORDERED: SODIUM CHLORIDE 0.9% 10ML FLUSH IV ONE (04:13)
[2019-03-19] MEDS ORDERED: AMIODARONE HCL INJ 50 MG/ML 3 ML VIAL IV ONE (04:13)
--- NOTE | 2019-03-19 06:57 | XRay Report ---
XR chest 1V portable CLINICAL HISTORY: Heart Alert. COMPARISON STUDY: Chest radiograph March 18, 2019. FINDINGS: There is no pneumothorax. There may be trace bilateral pleural effusions. Interstitial thic kening has developed. Cardiac size is at the upper limits of normal. IMPRESSION: Interval development of interstitial pulmonary edema. Electronically signed by: Logan Ambrocio M.D. 03/19/2019 6:56 AM
[2019-03-19] MEDS ORDERED: ASPIRIN 81 MG ECTAB PO SCH (09:00)
[2019-03-20] MEDS ORDERED: CLOPIDOGREL BISULFATE 75 MG TAB PO SCH (09:00)
--- NOTE | 2019-03-20 21:00 | Death Summary ---
Date of Service March 19, 2019 Pronouncement Note Contributing Factors (1) Non-ST elevation myocardial infarction (NSTEMI): (2) CAD (coronary artery disease): (3) Seasonal asthma: (4) DVT prophylaxis: Additional Data Attending physician: Tung Brown DO Supervising Physician Co-Signing Physician Notes Attending addendum: I have physically seen this patient, have supervised the medical residents activities, and agree with the H&P unless as otherwise noted. Assessment and Plan: summary- The patient underwent a code purple early on in evening due to reported bradycardia and EKG at that time revealed an inferior STEMI. A heart alert was called at that time, the patient was seen by Dr. Ananth Stein from interventional cardiology, who took the patient to the cardiac Real Estate Services Administrator. Patient admitted LAD stent placed, and did receive 0.5 atropine dose due to bradycardia at the end of the procedure. Patient later on that evening developed a supraventricular tachycardia in the one 180-190 bpm range. A code purple was again called at that time, patient received IV Lopressor, synchronized cardioversion x2, bicarbonate IV pushes, normal saline fluid bolus. She later required the addition of amiodarone IV and dopamine IV. Her CODE STATUS was DNR, and therefore patient was not intubated or underwent chest compressions. Patient improved and was pronounced at 3:18 AM on the morning of March 19, 2019. Of note, several calls were placed to family during the first code purple, and upon recovery from cardiac catheterization suite, and the second code purple as well.
--- NOTE | 2019-03-20 21:03 | Death Summary ---
Date of Service March 19, 2019 Pronouncement Note Contributing Factors (1) Non-ST elevation myocardial infarction (NSTEMI): (2) CAD (coronary artery disease): (3) Seasonal asthma: (4) DVT prophylaxis: Additional Data Attending physician: Tung Brown DO Supervising Physician Co-Signing Physician Notes Attending addendum: I have physically seen this patient, have supervised the medical residents activities, and agree with the H&P unless as otherwise noted. Assessment and Plan: summary- The patient underwent a code purple early on in evening due to reported bradycardia and EKG at that time revealed an inferior STEMI. A heart alert was called at that time, the patient was seen by Dr. Ananth Stein from interventional cardiology, who took the patient to the cardiac Microphone Operator. Patient admitted LAD stent placed, and did receive 0.5 atropine dose due to bradycardia at the end of the procedure. Patient later on that evening developed a supraventricular tachycardia in the one 180-190 bpm range. A code purple was again called at that time, patient received IV Lopressor, synchronized cardioversion x2, bicarbonate IV pushes, normal saline fluid bolus. She later required the addition of amiodarone IV and dopamine IV. Her CODE STATUS was DNR, and therefore patient was not intubated or underwent chest compressions. Patient ceased to breath and was pronounced at 3:18 AM on the morning of March 19, 2019. Of note, several calls were placed to family during the first code purple, and upon recovery from cardiac catheterization suite, and the second code purple as well. A total of 70 minutes was spent with direct patient care during the code purples.
== END 2019-03-19 04:14 | disposition expired | DRG 247 ==
LOC: ED 10:30 → 2S 15:09 → 2E 03-19 01:58